=== PATIENT | female | born 1960 | race Caucasian/White ===

== ENCOUNTER 2017-08-05 14:40 | Emergency (ER) | payer OTHER ==
[2017-08-05] MEDS: ONDANSETRON (ODT) 4 MG TAB ODT (16:17)
[2017-08-05] MEDS: HYDROCODONE/APAP (10/325) TAB PO (16:17)
[2017-08-05] MEDS: MECLIZINE 12.5 MG TAB PO (16:17)
[2017-08-05] MEDS: IBUPROFEN 800 MG TAB PO (16:17)
== END 2017-08-05 18:01 | disposition home or self-care (01) ==
LOC: E/R 14:40
DX: R42 Dizziness and giddiness (principal); R11.2 Nausea with vomiting, unspecified
CPT/HCPCS: 70450; 99284-25

== ENCOUNTER 2018-08-18 20:14 | Emergency (ER) | payer OTHER ==
[2018-08-18 21:15] LABS: ADD MAN DIFF? NO
[2018-08-18 21:16] LABS: BASOPHILS % 0.4 % (0.0-2.0); EOSINOPHILS # 0.2 10^3/ul (0.0-0.5); EOSINOPHILS % 2.2 % (0.0-7.0); HEMATOCRIT 42.3 % (37.0-47.0); HEMOGLOBIN 13.9 g/dl (12.0-16.0); LYMPHOCYTES # 2.5 10^3/ul (0.8-2.9); LYMPHOCYTES % 30.6 % (15.0-51.0); MEAN CORPUSCULAR HEMOGLOBIN 29.8 pg (29.0-33.0); MEAN CORPUSCULAR HGB CONC 32.9 g/dl (32.0-37.0); MEAN CORPUSCULAR VOLUME 90.8 fl (82.0-101.0); MEAN PLATELET VOLUME 10.5 fl (7.4-10.4); MONOCYTE # 0.7 10^3/ul (0.3-0.9); MONOCYTES % 8.3 % (0.0-11.0); NEUTROPHIL # 4.7 10^3/ul (1.6-7.5); NEUTROPHILS % 58.1 % (39.0-77.0); PLATELET COUNT 272 10^3/UL (140-415); RED BLOOD COUNT 4.66 10^6/ul (4.20-5.40); RED CELL DISTRIBUTION WIDTH 13.5 % (11.5-14.5)
[2018-08-18 21:16] LABS: WHITE BLOOD COUNT 8.1 10^3/ul (4.8-10.8)
[2018-08-18 21:32] LABS: ANION GAP 10 (5-13); BLOOD UREA NITROGEN 13 mg/dl (7-20); CALCIUM 9.5 mg/dl (8.4-10.2); CARBON DIOXIDE 28 mmol/L (21-31); CHLORIDE 102 mmol/L (97-110); CREATININE 0.53 mg/dl (0.44-1.00); Estimated GFR > 60 mL/min (>60); GLUCOSE 114 mg/dl (70-220); POTASSIUM 3.7 mmol/L (3.5-5.1); SODIUM 140 mmol/L (135-144)
[2018-08-18 21:44] LABS: TROPONIN-I < 0.012 ng/ml (0.000-0.120)
[2018-08-18] MEDS ORDERED: DOCUSATE SODIUM 100 MG CAP PO (23:30)
[2018-08-18] MEDS ORDERED: ACETAMINOPHEN 325 MG TAB PO ×2 (23:30)
[2018-08-18] MEDS ORDERED: NACL 0.9% 3 ML SYG IV (23:30)
[2018-08-18] MEDS ORDERED: NITROGLYCERIN (SL) 0.4 MG TAB SL (23:30)
[2018-08-18] MEDS ORDERED: ONDANSETRON 4 MG INJ IV ×2 (23:30)
[2018-08-18] MEDS ORDERED: BISACODYL 10 MG SUPP PR (23:30)
[2018-08-18] MEDS ORDERED: MAGNESIUM HYDROXIDE 30ML CUP PO (23:30)
[2018-08-18] MEDS ORDERED: morphine 2 MG INJ IV (23:30)
[2018-08-19 04:33] LABS: ADD MAN DIFF? NO
[2018-08-19 04:36] LABS: BASOPHILS % 0.4 % (0.0-2.0); EOSINOPHILS # 0.2 10^3/ul (0.0-0.5); EOSINOPHILS % 2.6 % (0.0-7.0); HEMATOCRIT 44.1 % (37.0-47.0); HEMOGLOBIN 14.3 g/dl (12.0-16.0); LYMPHOCYTES # 2.6 10^3/ul (0.8-2.9); MEAN CORPUSCULAR HEMOGLOBIN 29.5 pg (29.0-33.0); MEAN CORPUSCULAR HGB CONC 32.4 g/dl (32.0-37.0); MEAN CORPUSCULAR VOLUME 91.1 fl (82.0-101.0); MEAN PLATELET VOLUME 11.2 fl (7.4-10.4); MONOCYTE # 0.7 10^3/ul (0.3-0.9); MONOCYTES % 8.9 % (0.0-11.0); NEUTROPHIL # 4.4 10^3/ul (1.6-7.5); NEUTROPHILS % 54.8 % (39.0-77.0); PLATELET COUNT 235 10^3/UL (140-415); RED BLOOD COUNT 4.84 10^6/ul (4.20-5.40); RED CELL DISTRIBUTION WIDTH 13.5 % (11.5-14.5)
[2018-08-19 04:43] LABS: HEMOGLOBIN A1C 5.6 % (0-5.9)
[2018-08-19 04:55] LABS: INR 0.91; PARTIAL THROMBOPLASTIN TIME 29.7 Sec (23.0-35.0); PROTIME 12.4 Sec (11.9-14.9)
[2018-08-19 07:52] LABS: CREATINE KINASE 86 IU/L (23-200)
[2018-08-19 07:58] LABS: CK INDEX 3.3; CK-MB 2.86 ng/ml (0.0-2.4); TROPONIN-I < 0.012 ng/ml (0.000-0.120)
[2018-08-19 08:39] LABS: ALANINE AMINOTRANSFERASE 24 IU/L (13-69); ALBUMIN 4.4 g/dl (3.3-4.9); ALBUMIN/GLOBULIN RATIO 1.57; ALKALINE PHOSPHATASE 98 IU/L (42-121); ANION GAP 11 (5-13); ASPARTATE AMINO TRANSFERASE 23 IU/L (15-46); BILIRUBIN,INDIRECT 0.4 mg/dl (0-1.1); BILIRUBIN,TOTAL 0.4 mg/dl (0.2-1.3); BLOOD UREA NITROGEN 12 mg/dl (7-20); CALCIUM 9.7 mg/dl (8.4-10.2); CARBON DIOXIDE 23 mmol/L (21-31); CHLORIDE 107 mmol/L (97-110); CHOL/HDL RATIO 2.8 RATIO; CHOLESTEROL 200 mg/dl (100-200); CREATININE 0.53 mg/dl (0.44-1.00); Estimated GFR > 60 mL/min (>60); GLUCOSE 94 mg/dl (70-220); HDL CHOLESTEROL 70 mg/dl (35-98); LDL CHOLESTEROL,CALCULATED 110 mg/dl; MAGNESIUM 2.1 mg/dl (1.7-2.5); POTASSIUM 3.9 mmol/L (3.5-5.1); SODIUM 141 mmol/L (135-144); TOTAL PROTEIN 7.2 g/dl (6.1-8.1); TRIGLYCERIDES 98 mg/dl (0-149)
[2018-08-19] MEDS: FAMOTIDINE 20 MG INJ IV (08:49)
[2018-08-19] MEDS: ASPIRIN 81 MG TAB PO (08:49)
[2018-08-19] MEDS: ENOXAPARIN 40 MG/0.4 ML SYG SC (08:49)
[2018-08-19 13:36] LABS: CREATINE KINASE 79 IU/L (23-200)
[2018-08-19 13:41] LABS: FREE T4 (FREE THYROXINE) 1.51 ng/dl (0.78-2.44)
[2018-08-19 13:50] LABS: CK INDEX 2.9; CK-MB 2.28 ng/ml (0.0-2.4); TROPONIN-I < 0.012 ng/ml (0.000-0.120)
[2018-08-19] MEDS: REGADENOSON 0.4 MG/5 ML SYG (16:19)
[2018-08-19] MEDS ORDERED: ATORVASTATIN 20 MG TAB PO (21:00)
== END 2018-08-19 18:05 | disposition home or self-care (01) ==
LOC: E/R 20:14
DX: R07.9 Chest pain, unspecified (principal)
CPT/HCPCS: 36415; 71045; 78452; 80048; 80053; 80061; 82550; 82553; 83036; 83735; 84439; 84443; 84484; 85025; 85610; 85730; 93005; 93017; 93306; 96372; 99285-25